=== PATIENT | female | born 1955 | race Caucasian/White ===

== ENCOUNTER 2017-01-13 06:53 | Emergency (ER) | payer BC ==
[2017-01-13] MEDS ORDERED: NS 0.9% 1000 ML* 1,000 ML IV ONE (07:15)
--- NOTE | 2017-01-13 07:17 | ED ---
Abdominal Pain/Female - HPI Summary HPI Summary: 61F presents with LLQ pain today. Had diarrhea Friday and took a dose of imodium. She states this is similar to diverticulitis pain in past. She took hydrocodone this morning so pain is 4/10. She denies any nausea, vomiting, or acid reflux. She has history of kidney stones but denies any flank pain. She denies any dysuria, hematuria, vaginal discharge, or constipation. She states the pain started on left lower quadrant and radiates up to left upper quadrant. She admits to decrease in appetite. - History of Current Complaint Chief Complaint: EDAbdPain Stated Complaint: LOWER LT ABD PAIN Time Seen by Provider: 01/13/17 07:07 Pain Intensity: 4 Allergies/Adverse Reactions: Allergies Allergy/AdvReac Type Severity Reaction Status Date / Time Erythromycin AdvReac Severe GI Upset Verified 09/20/16 14:20 Tetracycline AdvReac Severe GI Upset Verified 09/20/16 14:20 PMH/Surg Hx/FS Hx/Imm Hx Endocrine/Hematology History: Denies: Hx Diabetes Cardiovascular History: Reports: Hx Hypertension - boderline/no medicated Denies: Hx Pacemaker/ICD Respiratory History: Reports: Other Respiratory Problems/Disorders - SINUS POST NASAL DRIP Denies: Hx Asthma History: Reports: Hx Kidney Stones - December 2015 Denies: Hx Renal Disease Musculoskeletal History: Denies: Hx Osteoporosis Sensory History: Reports: Hx Contacts or Glasses Denies: Hx Hearing Aid Opthamlomology History: Reports: Hx Contacts or Glasses Psychiatric History: Denies: Hx Panic Disorder - Cancer History Hx Chemotherapy: No Hx Radiation Therapy: No - Surgical History Surgery Procedure, Year, and Place: HYSTERECTOMY 1997. KIDNEY STONE REMOVED 2015 Hx Anesthesia Reactions: No - NAUSEA Infectious Disease History: Reports: Hx Shingles Denies: Traveled Outside the [place] in Last 30 Days - Family History Known Family History: Positive: Hypertension Negative: Other - negative breast [place] - Social History Alcohol Use: None Hx Substance Use: No Substance Use Type: Reports: None Hx Tobacco Use: No Smoking Status (MU): Never Smoked Tobacco Review of Systems Negative: Fever Negative: Chest Pain Negative: Shortness Of Breath Positive: Abdominal Pain - LLQ, Diarrhea - resolved. Negative: Vomiting, Nausea All Other Systems Reviewed And Are Negative: Yes Physical Exam Triage Information Reviewed: Yes Vital Signs On Initial Exam: Initial Vitals Temp Pulse Resp BP Pulse Ox 97.5 F 62 18 138/73 99 01/13/17 06:57 01/13/17 06:57 01/13/17 06:57 01/13/17 06:57 01/13/17 06:57 Vital Signs Reviewed: Yes Appearance: Positive: Well-Appearing Skin: Positive: Warm, Dry Head/Face: Positive: Normal Head/Face Inspection Eyes: Positive: Normal, Conjunctiva Clear Respiratory/Lung Sounds: Positive: Clear to Auscultation, Breath Sounds Present Cardiovascular: Positive: Normal, RRR Abdomen Description: Positive: Soft, Other: - tenderness to LUQ and LLQ, no rebound Bowel Sounds: Positive: Present Diagnostics - Vital Signs Vital Signs Temp Pulse Resp BP Pulse Ox 01/13/17 06:57 97.5 F 62 18 138/73 99 - Laboratory Result Diagrams: 01/13/17 07:35 01/13/17 07:35 Lab Statement: Any lab studies that have been ordered have been reviewed, and results considered in the medical decision making process. - CT abd CT Interpretation: Positive (See Comments) - IMPRESSION: DIVERTICULITIS OF THE SIGMOID COLON WITHOUT DEFINITE EVIDENCE OF ABSCESS. NO EVIDENCE OF BOWEL OBSTRUCTION IS NOTED. LESION IN THE LIVER IS LIKELY A BENIGN FINDING IT HAS BEEN STABLE SINCE JUNE 2016. CT Interpretation Completed By: Radiologist Abdominal Pain Fem Course/Dx - Course Course Of Treatment: 61F presents with LLQ for a day. states similiar to pain has had for diverticulitis. admits to diarrhea on Friday that took dose of imodium. denies any fever, n/v. on exam has tenderness to LUQ and LLQ. labs normal WBC and CRP. got CT and shows diverticulitis. due to patient able to tolerate PO intake and no WBC will d/c with cipro and flagyl. patient understands and agrees with plan - Diagnoses Differential Diagnosis: Positive: Constipation, Diverticulitis, Renal Colic Provider Diagnoses: Diverticulitis Discharge - Discharge Plan Condition: Good Disposition: HOME Prescriptions: Ciprofloxacin TAB* [Cipro 500 MG TAB*] 500 mg PO BID #19 tab Metronidazole [Flagyl 500 MG TAB] 500 mg PO TID #29 tab Patient Education Materials: Diverticulitis (ED) Referrals: Rinku Yadav MD [Primary Care Provider] - Additional Instructions: Take ciprofloxacin twice a day for 10 days, first dose given in ED Take Flagyl three times a day for 10 days, first dose given in ED, do not drink alcohol with this medication Eat food as tolerated, may have to follow clear liquid diet Follow up with primary in 7 days Take Tylenol or ibuprofen for pain every 6 hours Return to ED if develop any new or worsening symptoms
[2017-01-13 07:53] LABS: Hematocrit 40 % (35-47); Hemoglobin 13.1 g/dl (12.0-16.0); Mean Corpuscular HGB Conc 33 g/dl (31-36); Mean Corpuscular Hemoglobin 30 pg (27-31); Mean Corpuscular Volume 89 fL (80-97); Mean Platelet Volume 9 um3 (7.4-10.4); Red Blood Count 4.43 10^6/ul (4.0-5.4); Red Cell Distribution Width 14 % (10.5-15); White Blood Count 7.9 10^3/ul (3.5-10.8)
[2017-01-13 08:04] LABS: BUN/Creatinine Ratio 20.3 (8-20); EGFR Non-African American 87.1 (>60); Globulin 1.4 g/dL (2-4); Potassium 3.7 mmol/L (3.5-5.0); Total Bilirubin 0.6 mg/dL (0.2-1.0); Total Protein 5.4 g/dL (6.4-8.9)
[2017-01-13] MEDS ORDERED: Iohexol 300* (CONTRAST) 10 ML SDV IV ONE (09:32)
[2017-01-13 09:35] LABS: Urine Bilirubin Negative (Negative); Urine Glucose Negative (Negative); Urine Nitrite Negative (Negative)
--- NOTE | 2017-01-13 10:21 | RAD ---
Indication: Left lower quadrant pain, diverticulitis. Contrast: Administered 87.1 ml of OMNIPAQUE 300 mg/ml CT of the abdomen and pelvis was performed after oral and IV contrast administration. Coronal and sagittal reconstructed images were obtained. The lung bases demonstrate no pleural fluid, nodules or masses. Heart is of normal size without evidence of pericardial effusion. The liver is normal in size. There is a low density lesion in the posterior segment of the right lobe of the liver measuring up to 9 mm. This may represent a cyst or hemangioma. No other focal lesions or intrahepatic ductal dilatation is noted. This was present on prior exam of June 30, 2016. The gallbladder demonstrates no calcified gallstones. No pericholecystic fluid or wall thickening is identified. The pancreas demonstrates no mass or pancreatic ductal dilatation. The spleen is normal in size. No adrenal lesions are noted. The pancreas demonstrates no mass or pancreatic duct dilatation. The common duct is not dilated. No adrenal lesions are noted. The kidneys demonstrate symmetric nephrograms. There are small cortical cysts in the left kidney measuring up to 15 mm and 15 mm in the mid and lower pole of the left kidney. These are likely present previously. No retroperitoneal adenopathy is noted. Aorta and inferior vena cava are unremarkable. CT of the pelvis demonstrates diverticulosis of the sigmoid colon. There may be some wall thickening and reticulation of fat in the sigmoid colon deep in the left pelvis. This may represent diverticulitis. No definite peridiverticular abscess is noted. The patient is status post hysterectomy. No dilated loops of bowel are noted. The urinary bladder is partially collapsed. No hernias are noted. IMPRESSION: DIVERTICULITIS OF THE SIGMOID COLON WITHOUT DEFINITE EVIDENCE OF ABSCESS. NO EVIDENCE OF BOWEL OBSTRUCTION IS NOTED. LESION IN THE LIVER IS LIKELY A BENIGN FINDING IT HAS BEEN STABLE SINCE JUNE 2016. .
[2017-01-13] MEDS ORDERED: metroNIDAZOLE TAB* 250 MG PO ONE (10:35)
[2017-01-13] MEDS ORDERED: Ciprofloxacin TAB* 500 MG PO ONE (10:35)
[2017-01-13 10:56] VITALS: BP 121/71
== END 2017-01-13 11:18 | disposition home or self-care (01) ==
LOC: ED 06:53
DX: K57.92 Diverticulitis of intestine, part unspecified, without perforation or abscess without bleeding (principal)
CPT/HCPCS: 36415; 74177; 80053; 81003; 83605; 83690; 85025; 86141; 96360; 99283; A9270-GY; Q9967

== ENCOUNTER 2017-03-25 10:38 | Emergency (ER) | payer BC ==
[2017-03-25] MEDS ORDERED: NS 0.9% 1000 ML* 1,000 ML IV ONE (12:24)
[2017-03-25 12:29] LABS: Hematocrit 42 % (35-47); Hemoglobin 13.6 g/dl (12.0-16.0); Mean Corpuscular HGB Conc 33 g/dl (31-36); Mean Corpuscular Hemoglobin 30 pg (27-31); Mean Corpuscular Volume 92 fL (80-97); Mean Platelet Volume 10 um3 (7.4-10.4); Red Cell Distribution Width 14 % (10.5-15); White Blood Count 6.7 10^3/ul (3.5-10.8)
[2017-03-25 12:45] LABS: Albumin 4.3 g/dL (3.2-5.2); BUN/Creatinine Ratio 23.4 (8-20); Calcium 9.2 mg/dL (8.6-10.3); EGFR African American 122.1 (>60); Globulin 2.8 g/dL (2-4); Potassium 3.2 mmol/L (3.5-5.0); Total Protein 7.1 g/dL (6.4-8.9)
[2017-03-25 13:01] LABS: Urine Bilirubin Negative (Negative); Urine Glucose Negative (Negative); Urine Nitrite Negative (Negative)
[2017-03-25] MEDS ORDERED: Iohexol 300* (CONTRAST) 10 ML SDV IV ONE (14:04)
--- NOTE | 2017-03-25 15:06 | RAD ---
Indication: Diverticulitis, left lower quadrant pain. Contrast: Administered 80.0 ml of OMNIPAQUE 300 mgi/ml CT of the abdomen and pelvis was performed after oral and IV contrast administration. Coronal and sagittal reconstructed images were obtained. Lung bases demonstrate no pleural fluid, nodules or masses. Heart is of normal size without evidence of pericardial effusion. The liver is normal in size. Low density lesion is noted in the posterior segment of the right lobe liver likely reflects a small cyst or hemangioma measuring up to 7 mm. No intrahepatic ductal dilatation is noted. The spleen is normal in size. Pancreas demonstrates no mass or pancreatic duct dilatation. The common duct are not dilated. No adrenal lesions are noted. The kidneys demonstrate symmetric nephrograms without evidence of hydronephrosis. Cortical cyst in the left kidney measures up to 15 mm. Likely parapelvic cysts are noted in the lower pole of left kidney. Small bowel demonstrates no abnormal dilatation. There is contrast in the right colon. Diverticulosis of the sigmoid colon is noted. On the coronal images mild infiltration of fat is noted adjacent to the colon which May represent mild diverticulitis. No peridiverticular abscess is noted. IMPRESSION: DIVERTICULOSIS OF THE SIGMOID COLON WITH SUGGESTION OF SOME MILD DIVERTICULITIS. NO PERIDIVERTICULAR ABSCESS IS NOTED. NO OTHER MASSES OR FLUID COLLECTIONS ARE NOTED. LIKELY HEPATIC CYST IN THE RIGHT LOBE OF LIVER UNCHANGED FROM PRIOR EXAM.
--- NOTE | 2017-03-25 15:27 | ED ---
Abdominal Pain/Female - HPI Summary HPI Summary: 61F w/ PMH diverticulitis presents with abdominal pain for day. She states this feels like her typical diverticulitis pain she just is catching it very early. She states she is going on vacation today. She has history of hysterectomy. She denies any diarrhea yet. She denies any nausea, vomiting, flank pain, dysuria, hematuria, vaginal discharge, or constipation. She states the pain is only in left lower quadrant. She states she feels hungry. - History of Current Complaint Chief Complaint: EDAbdPain Stated Complaint: ABD PAIN Time Seen by Provider: 03/25/17 12:07 Pain Intensity: 3 Allergies/Adverse Reactions: Allergies Allergy/AdvReac Type Severity Reaction Status Date / Time Erythromycin AdvReac Severe GI Upset Verified 01/28/17 11:22 Tetracycline AdvReac Severe GI Upset Verified 01/28/17 11:22 PMH/Surg Hx/FS Hx/Imm Hx Endocrine/Hematology History: Denies: Hx Diabetes Cardiovascular History: Reports: Hx Hypertension - ON MEDS Denies: Hx Pacemaker/ICD Respiratory History: Reports: Other Respiratory Problems/Disorders - SINUS POST NASAL DRIP Denies: Hx Asthma History: Reports: Hx Kidney Stones - December 2015 Denies: Hx Renal Disease Musculoskeletal History: Denies: Hx Osteoporosis Sensory History: Reports: Hx Contacts or Glasses Denies: Hx Hearing Aid Opthamlomology History: Reports: Hx Contacts or Glasses Psychiatric History: Denies: Hx Panic Disorder - Cancer History Hx Chemotherapy: No Hx Radiation Therapy: No - Surgical History Surgery Procedure, Year, and Place: HYSTERECTOMY 1997. KIDNEY STONE REMOVED 2015 Hx Anesthesia Reactions: No - NAUSEA Infectious Disease History: No Infectious Disease History: Reports: Hx Shingles, Traveled Outside the [place] in Last 30 Days - [place] - Family History Known Family History: Positive: Hypertension Negative: Other - negative breast [place] - Social History Alcohol Use: None Hx Substance Use: No Substance Use Type: Reports: None Hx Tobacco Use: No Smoking Status (MU): Never Smoked Tobacco Review of Systems Negative: Fever Negative: Chest Pain Negative: Shortness Of Breath Positive: Abdominal Pain. Negative: Vomiting, Diarrhea, Nausea All Other Systems Reviewed And Are Negative: Yes Physical Exam Triage Information Reviewed: Yes Vital Signs On Initial Exam: Initial Vitals Temp Pulse Resp BP Pulse Ox 98.7 F 75 16 130/76 100 03/25/17 10:44 03/25/17 10:44 03/25/17 10:44 03/25/17 10:44 03/25/17 10:44 Vital Signs Reviewed: Yes Appearance: Positive: Well-Appearing Skin: Positive: Warm, Dry Head/Face: Positive: Normal Head/Face Inspection Eyes: Positive: Normal, Conjunctiva Clear Respiratory/Lung Sounds: Positive: Clear to Auscultation, Breath Sounds Present Cardiovascular: Positive: Normal, RRR Abdomen Description: Positive: Soft, Other: - mild left lower quadrant without rebound Bowel Sounds: Positive: Present - Samantha Coma Scale Coma Scale Total: 15 Diagnostics - Vital Signs Vital Signs Temp Pulse Resp BP Pulse Ox 03/25/17 15:00 78 15 110/63 98 03/25/17 14:00 70 15 126/58 98 03/25/17 13:47 76 24 91 03/25/17 13:46 127/69 03/25/17 13:00 135/79 03/25/17 12:30 131/82 03/25/17 12:10 139/72 03/25/17 10:44 98.7 F 75 16 130/76 100 - Laboratory Lab Results: Lab Results 03/25/17 03/25/17 03/25/17 Range/Units 12:20 12:20 12:52 WBC 6.7 (3.5-10.8) 10^3/ul RBC 4.50 (4.0-5.4) 10^6/ul Hgb 13.6 (12.0-16.0) g/dl Hct 42 (35-47) % MCV 92 (80-97) fL MCH 30 (27-31) pg MCHC 33 (31-36) g/dl RDW 14 (10.5-15) % Plt Count 353 (150-450) 10^3/ul MPV 10 (7.4-10.4) um3 Neut % (Auto) 52.4 (38-83) % Lymph % (Auto) 35.4 (25-47) % [place] % (Auto) 7.6 (1-9) % Eos % (Auto) 3.2 (0-6) % Baso % (Auto) 1.4 (0-2) % Absolute Neuts (auto) 3.5 (1.5-7.7) 10^3/ul Absolute Lymphs (auto) 2.4 (1.0-4.8) 10^3/ul Absolute Monos (auto) 0.5 (0-0.8) 10^3/ul Absolute Eos (auto) 0.2 (0-0.6) 10^3/ul Absolute Basos (auto) 0.1 (0-0.2) 10^3/ul Absolute Nucleated RBC 0.01 10^3/ul Nucleated RBC % 0.1 Sodium 135 (133-145) mmol/L Potassium 3.2 L (3.5-5.0) mmol/L Chloride 101 (101-111) mmol/L Carbon Dioxide 29 (22-32) mmol/L Anion Gap 5 (2-11) mmol/L BUN 15 (6-24) mg/dL Creatinine 0.64 (0.51-0.95) mg/dL Est GFR ( Amer) 122.1 (>60) Est GFR (Non-Af Amer) 95.0 (>60) BUN/Creatinine Ratio 23.4 H (8-20) Glucose 96 (70-100) mg/dL Calcium 9.2 (8.6-10.3) mg/dL Total Bilirubin 1.00 (0.2-1.0) mg/dL AST 16 (13-39) U/L ALT 14 (7-52) U/L Alkaline Phosphatase 49 (34-104) U/L C-React Prot High Sens 2.46 mg/L Total Protein 7.1 (6.4-8.9) g/dL Albumin 4.3 (3.2-5.2) g/dL Globulin 2.8 (2-4) g/dL Albumin/Globulin Ratio 1.5 (1-3) Lipase 15 (11.0-82.0) U/L Urine Color Yellow Urine Appearance Clear Urine pH 7.0 (5-9) Ur Specific [place] 1.013 (1.010-1.030) Urine Protein Negative (Negative) Urine Ketones Negative (Negative) Urine Blood Negative (Negative) Urine Nitrate Negative (Negative) Urine Bilirubin Negative (Negative) Urine Urobilinogen Negative (Negative) Ur Leukocyte Esterase Negative (Negative) Urine Glucose Negative (Negative) Result Diagrams: 03/25/17 12:20 03/25/17 12:20 Lab Statement: Any lab studies that have been ordered have been reviewed, and results considered in the medical decision making process. - CT abd CT Interpretation: Positive (See Comments) - IMPRESSION: DIVERTICULOSIS OF THE SIGMOID COLON WITH SUGGESTION OF SOME MILD DIVERTICULITIS. NO PERIDIVERTICULAR ABSCESS IS NOTED. NO OTHER MASSES OR FLUID COLLECTIONS ARE NOTED. LIKELY HEPATIC CYST IN THE RIGHT LOBE OF LIVER UNCHANGED FROM PRIOR EXAM. CT Interpretation Completed By: Radiologist Abdominal Pain Fem Course/Dx - Course Course Of Treatment: 61F w/ PMH diverticulitis presents with abdominal pain for day. She states this feels like her typical diverticulitis pain she just is catching it very early. She denies any diarrhea yet. She denies any other symptoms or fever. on exam tender in LLQ. labs normal. CT mild diverticulitis. will treat with cipro and flagyl. patient understands and agrees with plan - Diagnoses Differential Diagnosis: Positive: Diverticulitis, Renal Colic, Urinary Tract Infection Provider Diagnoses: Diverticulitis Discharge - Discharge Plan Condition: Good Disposition: HOME Prescriptions: Ciprofloxacin TAB* [Cipro 500 MG TAB*] 500 mg PO BID #19 tab Metronidazole [Flagyl 500 MG TAB] 500 mg PO TID #29 tab Ondansetron ODT TAB* [Zofran 4 MG Odt TAB*] 4 mg PO Q6H PRN #5 tab.odt PRN Reason: Nausea Patient Education Materials: Diverticulitis (ED) Referrals: Arthur Mirza DO [Primary Care Provider] - Additional Instructions: Take ciprofloxacin twice a day for 10 days Take Flagyl every 8 hours for 10 days Take Zofran every 6 hours for nausea Follow clear liquid diet until symptoms improve Return to ED if unable to keep anything down, develop fever, or any new or worsening symptoms
[2017-03-25] MEDS ORDERED: metroNIDAZOLE TAB* 250 MG PO ONE (15:28)
[2017-03-25] MEDS ORDERED: Ciprofloxacin TAB* 500 MG PO ONE (15:28)
[2017-03-25 15:38] VITALS: BP 118/72
== END 2017-03-25 15:49 | disposition home or self-care (01) ==
LOC: ED 10:38
DX: K57.92 Diverticulitis of intestine, part unspecified, without perforation or abscess without bleeding (principal); R10.9 Unspecified abdominal pain
CPT/HCPCS: 36415; 74177; 80053; 81003; 83690; 85025; 86141; 99283; A9270-GY; Q9967

== ENCOUNTER 2019-08-11 21:04 | Emergency (ER) | payer BC ==
[2019-08-11 21:13] VITALS: BP 129/77
--- NOTE | 2019-08-11 21:25 | UC ---
Complaint Female HPI - HPI Summary HPI Summary: ONSET YESTERDAY OF URINARY URGENCY, BURNING AND FREQUENCY. NO NAUSEA, FEVER OR BACK PAIN. - History Of Current Complaint Stated Complaint: POSS UTI Time Seen by Provider: 08/11/19 21:10 Hx Obtained From: Patient Onset/Duration: Gradual Onset, Lasting Days, Still Present Timing: Constant Severity Initially: Moderate Severity Currently: Moderate Pain Intensity: 2 Pain Scale Used: 0-10 Numeric Character: Burning Aggravating Factor(s): Urination Alleviating Factor(s): Nothing Associated Signs And Symptoms: Negative: Fever, Back Pain, Vaginal Bleeding/ Discharge, Nausea - Allergies/Home Medications Allergies/Adverse Reactions: Allergies Allergy/AdvReac Type Severity Reaction Status Date / Time erythromycin base Allergy GI Upset Verified 08/11/19 21:14 tetracycline Allergy GI Upset Verified 08/11/19 21:14 ENVIROMENTAL Allergy Eyes Uncoded 08/11/19 21:14 Itchy/Swollen/Red/Watery SUGAR SUBSTITUTES Allergy Headache Uncoded 08/11/19 21:14 Home Medications: Home Medications Biotin 2,500 mcg PO DAILY 08/11/19 [History Confirmed 08/11/19] Conjugated Estrogens TAB* [Premarin TAB*] 0.625 mg PO DAILY 08/11/19 [History Confirmed 08/11/19] Hydrochlorothiazide TAB* [Hydrodiuril TAB*] 25 mg PO DAILY 08/11/19 [History Confirmed 08/11/19] Ranitidine TAB (NF) [Zantac TAB (NF)] 150 mg PO BID 08/11/19 [History Confirmed 08/11/19] PMH/Surg Hx/FS Hx/Imm Hx Cardiovascular History: Hypertension - Surgical History Surgical History: Yes Surgery Procedure, Year, and Place: HYSTERECTOMY 1997. KIDNEY STONE REMOVED 2015. ROTATOR CUFF SURGERY LEFT SHOULDER-05/20/17. bowel resection and other repairs 2017. ? adhesions - Family History Known Family History: Positive: Hypertension Negative: Other - negative breast [place] - Social History Alcohol Use: None Substance Use Type: None Smoking Status (MU): Never Smoked Tobacco Review of Systems All Other Systems Reviewed And Are Negative: Yes Constitutional: Positive: Negative Respiratory: Positive: Negative Cardiovascular: Positive: Negative Gastrointestinal: Positive: Negative Genitourinary: Positive: Dysuria, Frequency, Urgency Physical Exam Triage Information Reviewed: Yes Appearance: Well-Appearing, No Pain Distress Vital Signs: Initial Vital Signs Temp 97.4 F 08/11/19 21:10 Pulse 74 08/11/19 21:10 Resp 16 08/11/19 21:10 BP 129/77 08/11/19 21:10 Pulse Ox 99 08/11/19 21:10 Laboratory Tests 08/11/19 21:22 POC Urine Color Yellow POC Urine Clarity Slightly cloudy POC Urine pH 6.5 POC Ur Specif [place] 1.025 POC Urine Protein Negative POC Ur Glucose (UA) Negative POC Urine Ketones Negative POC Urine Blood Trace-intact A POC Urine Nitrite Negative POC Urine Bilirubin Negative POC Urine Urobilinogen 0.2 POC U Leukocyte Esteras 1+ A Eyes: Positive: Conjunctiva Clear ENT: Positive: Hearing grossly normal Neck: Positive: Supple Respiratory: Positive: No respiratory distress, No accessory muscle use Cardiovascular: Positive: Pulses Normal Abdomen Description: Positive: Soft, Other: - MILD SUPRAPUBIC TENDERNESS. Negative: CVA Tenderness (R), CVA Tenderness (L), Distended, Guarding Musculoskeletal: Positive: No Edema Neurological: Positive: Alert Psychological: Positive: Age Appropriate Behavior Skin: Negative: Rashes Complaint Female Dx - Course Course Of Treatment: BACTRIM FOR UTI. PYRIDIUM FOR SYMPTOM RELIEF. PATIENT REPORTS FREQUENT YEAST INFECTIONS WITH ANTIBIOTICS SO WILL GIVE DIFLUCAN FOR HER TO USE IF SHE DEVELOPS SYMPTOMS. URINE SENT FOR CULTURE. - Differential Dx/Diagnosis Provider Diagnosis: UTI (urinary tract infection) Discharge ED - Sign-Out/Discharge Documenting (check all that apply): Patient Departure All imaging exams completed and their final reports reviewed: No Studies - Discharge Plan Condition: Stable Disposition: HOME Prescriptions: Fluconazole 150 MG (NF) [Diflucan 150 mg (NF)] 150 mg PO ONCE #2 tab Phenazopyridine TAB* [Pyridium TAB*] 200 mg PO TID #6 tab Sulfamethox/Trimethoprim DS* [Bactrim DS 800/160 TAB*] 1 tab PO BID #9 tab Patient Education Materials: Urinary Tract Infection in Women (ED) Referrals: Arthur Mirza DO [Primary Care Provider] - If Needed - Billing Disposition and Condition Condition: STABLE Disposition: Home
[2019-08-11] MEDS ORDERED: Sulfamethox/Trimethoprim DS 800/160* TAB PO ONE (21:29)
[2019-08-11] MEDS ORDERED: Phenazopyridine TAB* 100 MG PO ONE (21:29)
== END 2019-08-11 21:45 | disposition home or self-care (01) ==
LOC: UCEAST 21:04
DX: N39.0 Urinary tract infection, site not specified (principal); I10 Essential (primary) hypertension; Z88.1 Allergy status to other antibiotic agents; Z91.09 Other allergy status, other than to drugs and biological substances; Z91.018 Allergy to other foods; Z79.899 Other long term (current) drug therapy
CPT/HCPCS: 81003; 87086; 99212; A9270-GY; G0463

== ENCOUNTER 2019-08-14 09:23 | Emergency (ER) | payer BC ==
[2019-08-14 09:29] VITALS: BP 136/76
--- NOTE | 2019-08-14 09:38 | UC ---
Complaint Female HPI - HPI Summary HPI Summary: external burning and discomfort arounf urethra--no back or abdomen pain, no fevers chills or night sweats, nausea or vomiting - History Of Current Complaint Chief Complaint: UCGU Stated Complaint: POSSIBLE UTI Time Seen by Provider: 08/14/19 09:29 Hx Obtained From: Patient ?: No Onset/Duration: Gradual Onset, Lasting Days Timing: Constant Pain Intensity: 5 Pain Scale Used: 0-10 Numeric Character: Burning Aggravating Factor(s): Urination Alleviating Factor(s): Nothing Associated Signs And Symptoms: Positive: Negative - Allergies/Home Medications Allergies/Adverse Reactions: Allergies Allergy/AdvReac Type Severity Reaction Status Date / Time erythromycin base Allergy GI Upset Verified 08/14/19 09:29 tetracycline Allergy GI Upset Verified 08/14/19 09:29 ENVIROMENTAL Allergy Eyes Uncoded 08/14/19 09:29 Itchy/Swollen/Red/Watery SUGAR SUBSTITUTES Allergy Headache Uncoded 08/14/19 09:29 PMH/Surg Hx/FS Hx/Imm Hx Previously Healthy: Yes GI/ History: Gastroesophageal Reflux - Surgical History Surgical History: Yes Surgery Procedure, Year, and Place: HYSTERECTOMY 1997. KIDNEY STONE REMOVED 2015. ROTATOR CUFF SURGERY LEFT SHOULDER-05/20/17. bowel resection and other repairs 2017. ? adhesions - Family History Known Family History: Positive: Hypertension Negative: Other - negative breast [place] - Social History Occupation: Employed Full-time Lives: With Family Alcohol Use: None Substance Use Type: None Smoking Status (MU): Never Smoked Tobacco Review of Systems All Other Systems Reviewed And Are Negative: Yes Constitutional: Positive: Negative Skin: Positive: Negative Eyes: Positive: Negative ENT: Positive: Negative Respiratory: Positive: Negative Cardiovascular: Positive: Negative Gastrointestinal: Positive: Negative Genitourinary: Positive: Dysuria Motor: Positive: Negative Neurovascular: Positive: Negative Musculoskeletal: Positive: Negative Neurological: Positive: Negative Psychological: Positive: Negative Is Patient Immunocompromised?: No Physical Exam Triage Information Reviewed: Yes Appearance: Well-Appearing, No Pain Distress, Well-Nourished Vital Signs: Initial Vital Signs Temp 98.8 F 08/14/19 09:26 Pulse 79 08/14/19 09:26 Resp 16 08/14/19 09:26 BP 136/76 08/14/19 09:26 Pulse Ox 100 08/14/19 09:26 Vital Signs Reviewed: Yes Eye Exam: Normal Eyes: Positive: Conjunctiva Clear ENT Exam: Normal ENT: Positive: Normal ENT inspection, Hearing grossly normal. Negative: Trismus , Muffled voice, Hoarse voice Dental Exam: Normal Neck exam: Normal Neck: Positive: Supple, Nontender Respiratory Exam: Normal Respiratory: Positive: Chest non-tender, No respiratory distress, No accessory muscle use Cardiovascular Exam: Normal Cardiovascular: Positive: RRR, Brisk Capillary Refill Abdominal Exam: Normal Abdomen Description: Positive: Nontender, No Organomegaly, Soft. Negative: CVA Tenderness (R), CVA Tenderness (L) Bowel Sounds: Negative: Present Pelvic Exam: Positive: Other - patient refused assessment---concerns linger regarding prolapsed urethra, vulvavaginitis Musculoskeletal Exam: Normal Neurological Exam: Normal Psychological Exam: Normal Skin Exam: Normal Complaint Female Dx - Course Course Of Treatment: urine dip was normal and sensitivity returned with appropriate antibiotic treatment--patient felt pyridium was helpful as well as premarin cream patient will use these two treatment and follow with urology - Differential Dx/Diagnosis Provider Diagnosis: Dysuria Discharge ED - Sign-Out/Discharge Documenting (check all that apply): Patient Departure All imaging exams completed and their final reports reviewed: No Studies - Discharge Plan Condition: Stable Disposition: HOME Prescriptions: Phenazopyridine 200 mg (NF) [Pyridium 200 MG tab *] 200 mg PO TID PRN #9 tab PRN Reason: urinary pain and burning Patient Education Materials: Dysuria (ED) Referrals: Alexys Rocha MD [Medical Doctor] - 2 Days - Billing Disposition and Condition Condition: STABLE Disposition: Home - Attestation Statements Provider Attestation: I was available for consult. This patient was seen by the LEE. The patient was not presented to , seen by or examined by me Idania Darling MD
== END 2019-08-14 10:04 | disposition home or self-care (01) ==
LOC: UCEAST 09:23
DX: R30.0 Dysuria (principal); Z88.1 Allergy status to other antibiotic agents; Z91.018 Allergy to other foods; Z91.09 Other allergy status, other than to drugs and biological substances
CPT/HCPCS: 81003; 99212; G0463